=== PATIENT | female | born 1975 | race Caucasian/White ===

== ENCOUNTER 2019-03-04 20:30 | Inpatient (IN) ==
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
[2019-03-04 21:25] LABS: Bilirubin,Urine Negative (Negative); Blood,Urine Negative (Negative); Clarity,Urine Clear (Clear); Color,Urine Yellow (Yellow); Glucose,Urine (UA) Normal (Normal); Ketones,Urine Negative (Negative); Leukocyte Esterase,Urine Trace (Negative); Nitrite,Urine Negative (Negative); Protein,Urine Negative (Neg-Trace); Specific Gravity,Urine 1.009 (1.010-1.025); Urobilinogen,Urine Normal (Normal)
[2019-03-04 21:26] LABS: Bacteria,Urine None Seen per hpf (None-Few); Hyaline Casts,Urine None Seen per lpf (None-Few); Squamous Epithelial Cell,Urine Many per lpf (None-Few)
[2019-03-04 21:35] LABS: Amphetamine Screen,Urine Negative ng/mL (Cutoff=1000); Barbiturate Screen,Urine Negative ng/mL (Cutoff=200); Benzodiazepines Screen,Urine Negative ng/mL (Cutoff=200); Cannabinoid Screen,Urine Negative ng/mL (Cutoff = 50); Cocaine Screen,Urine Negative ng/mL (Cutoff= 300); Opiate Screen,Urine Negative ng/mL (Cutoff=300); Phencyclidine Screen,Urine Negative ng/mL (Cutoff=25)
[2019-03-04 21:50] LABS: Basophils # 0.1 K/mcL (0.0-0.2); Basophils % 0.7 %; Eosinophils # 0.3 K/mcL (0.0-0.6); Eosinophils % 3.2 %; Hematocrit 41.8 % (35.3-44.9); Hemoglobin 13.8 g/dL (11.5-15.4); Immature Granulocytes % 0.3 % (0-4); Lymphocytes # 1.7 K/mcL (0.6-4.6); Mean Corpuscular Hemoglobin 28.9 pg (28.0-33.3); Mean Corpuscular Volume 87.6 fL (83.0-100.0); Mean Platelet Volume 9.4 fL (9.4-12.4); Monocytes # 0.6 K/mcL (0.0-1.3); Monocytes % 5.7 %; Neutrophils # 7.4 K/mcL (1.6-8.9); Platelet Count 303 K/mcL (140-400); Red Blood Count 4.77 M/mcL (3.82-4.97); Red Cell Distribution Width 13.2 % (11.5-14.5); Segmented Neutrophils % 73.1 %
[2019-03-04 22:04] LABS: Acetaminophen < 10 mcg/mL (10-20); BUN/Creatinine Ratio 9 (6-26); Blood Urea Nitrogen 11 mg/dL (6-20); Carbon Dioxide 23 mEq/L (23-29); Chloride 110 mEq/L (98-107); Ethanol < 10 mg/dL (Less than 10); Glucose 100 mg/dL (70-105); Osmolality,Calculated 281 (280-300); Potassium 4.1 mEq/L (3.5-5.1); Salicylate < 2.5 mg/dL (15.0-30.0); Sodium 136 mEq/L (136-145); eGFR For Non-African Americans 46 (> 60)
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
[2019-03-05] MEDS ORDERED: Nicotine 2 MG GUM BC PRN (01:06)
[2019-03-05] MEDS ORDERED: Mag Hydrox/Al Hydrox/Simeth 30 ML UDC PO PRN (01:06)
[2019-03-05] MEDS ORDERED: Haloperidol Lactate 5 MG/ML VIAL IM PRN (01:06)
[2019-03-05] MEDS ORDERED: *HR* LORazepam 1 MG TABLET PO PRN (01:06)
[2019-03-05] MEDS ORDERED: *HR* LORazepam 2 MG/ML VIAL IM PRN (01:06)
[2019-03-05] MEDS ORDERED: MOM Conc 10 ML UD.LIQ PO PRN (01:06)
[2019-03-05] MEDS: traZODone 50 MG TABLET PO PRN ×2 (02:05→21:07)
[2019-03-05] MEDS: hydrOXYzine pamoate 25 MG CAPSULE PO PRN ×2 (02:05→21:07)
[2019-03-05] MEDS ORDERED: Acetaminophen 325 MG TABLET PO PRN (02:41)
[2019-03-05] MEDS ORDERED: Ibuprofen 400 MG TABLET PO PRN (02:41)
[2019-03-05] MEDS: rOPINIRole 0.25 MG TABLET PO SCH ×2 (02:50→21:07)
[2019-03-05] MEDS: Gabapentin 300 MG CAPSULE PO SCH ×2 (02:50→21:07)
[2019-03-05] MEDS: BuPROPion XL (24 HR) 150 MG TABLET PO SCH (09:48)
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
[2019-03-05] MEDS: ARIPiprazole 5 MG TABLET PO SCH (12:55)
[2019-03-06] MEDS: BuPROPion XL (24 HR) 150 MG TABLET PO SCH (09:34)
[2019-03-06] MEDS: ARIPiprazole 5 MG TABLET PO SCH (09:34)
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
[2019-03-06] MEDS: rOPINIRole 0.25 MG TABLET PO SCH (20:52)
[2019-03-06] MEDS: Gabapentin 300 MG CAPSULE PO SCH (20:52)
[2019-03-06] MEDS: traZODone 50 MG TABLET PO PRN (20:53)
[2019-03-06] MEDS: hydrOXYzine pamoate 25 MG CAPSULE PO PRN (20:53)
[2019-03-07] MEDS: BuPROPion XL (24 HR) 150 MG TABLET PO SCH (08:35)
[2019-03-07] MEDS: ARIPiprazole 5 MG TABLET PO SCH (08:35)
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
[2019-03-07 09:39] VITALS: BP 114/80
== END 2019-03-07 10:20 | disposition home or self-care (01) | DRG 885 ==
LOC: 1ANU 20:30 → EMEROOARM 20:30 → SUATTDRO 03-05 00:21 → 1ANU 03-05 00:37
PROVIDERS: ADMIT Psychiatry & Neurology Psychiatry; ATTEND Psychiatry & Neurology Psychiatry